=== PATIENT | female | born 1995 | race Hispanic/Latino ===

== ENCOUNTER 2023-08-18 11:23 | Emergency (ER) | payer SELFPAY ==
[2023-08-18 11:25] VITALS: BP 134/87; PULSE 84; RESP 16; TEMP 36.6; O2SAT 100; BMI 31.1
[2023-08-18 12:10] LABS: Bacteria 0 SEEN /hpf (None Seen); Mucous, Urine 0 SEEN /hpf (<or=2+); Red Blood Cells-Urine 0 SEEN /hpf (0-5); White Blood Cells 0 SEEN /hpf (0-5)
[2023-08-18 12:12] LABS: Color, Urine Yellow (Yellow); Glucose, Dipstick Normal (Normal); Ketone-Dipstick Negative (Negative); Leukocyte Esterase-Dipstick Negative /ul (Negative); Nitrite-Dipstick Negative (Negative); Occult Blood-Urine Negative /ul (Negative); Protein-Dipstick Negative (Negative); Specific Gravity, Urine 1.015 (1.002-1.030); Urine Bilirubin Dipstick Negative (Negative); Urine Clarity Cloudy (Clear); Urine Urobilinogen Normal (Normal)
[2023-08-18 12:14] LABS: Internal QC Validated? YES +Cl - CLEAR BKGD; Pregnancy, Urine Negative Negative; Record Kit Lot#,Urine Preg HCG0000718086
[2023-08-18 12:20] LABS: Squamous Epithelial Cells - UA 0-5 SEEN /hpf (5-10)
[2023-08-18 12:21] LABS: Amorphous Sediment 4+
--- NOTE | 2023-08-18 12:29 | CT_ITS ---
STUDY: CTA HEAD AND NECK WITH CONTRAST REASON FOR EXAM: Female, 27 years old. Headache, sudden onset RADIATION DOSAGE (If Supplied By Facility): CTDIvol = ( 25.68 ) mGy, DLP = ( 1526.17 ) mGycm TECHNIQUE: CT angiography was performed with a multi-detector CT scanner. Data acquisition was obtained from the skull base through the vertex following intravenous administration of IV 100mL [id number]-[id number]. MIP images were reconstructed from the axial data set. Post-processing of the angiographic images was performed, with multiplanar reformation and 3D reconstruction. Individualized dose optimization techniques were used for this CT. COMPARISON: No relevant priors. FINDINGS: Normal bilateral petrous carotid arteries. Normal right cavernous carotid artery with a normal supraclinoid bifurcation. Normal left cavernous carotid artery with a normal supraclinoid bifurcation. Normal right A1 segments of the anterior cerebral artery. Normal left A1 segments of the anterior cerebral artery. Normal intact anterior communicating artery (ACOM). Normal bilateral A2 segments of the anterior cerebral arteries. Normal right M1 and M2 segments of the middle cerebral arteries, with a normal M1 bifurcation. Normal left M1 and M2 segments of the middle cerebral arteries, with a normal M1 bifurcation. Normal right posterior communicating artery (PCOM). Normal left posterior communicating artery (PCOM). Normal bilateral vertebral arteries. Normal basilar artery with a normal basilar bifurcation. The visualized bilateral superior cerebellar (SCA) arteries are normal. Normal bilateral P1, P2 and visualized P3 segments of the posterior cerebral arteries. There is no demonstrated aneurysm of the [place]. There is no demonstrated abnormality of the visualized brain. AORTIC ARCH: Normal visualized aortic arch. Normal origins of the brachiocephalic, left common carotid, and left subclavian arteries. RIGHT CAROTID ARTERIES: Normal right common carotid artery (CCA). Normal right common carotid bulb. Normal origin of the right internal carotid (ICA) artery without a hemodynamically significant stenosis. Normal visualized cervical portion of the right internal carotid artery. Normal origin of the right external carotid artery (ECA). LEFT CAROTID ARTERIES: Normal left common carotid artery (CCA). Normal left common carotid bulb. Normal origin of the left internal carotid (ICA) artery without a hemodynamically significant stenosis. Normal visualized cervical portion of the left internal carotid artery. Normal origin of the left external carotid artery (ECA). VERTEBRAL ARTERIES: Normal bilateral vertebral arteries. CT/CTA Head AND Neck W/ Contrast IMPRESSION: Normal CTA Head and neck with contrast. Electronically Signed: Chino Nunez MD at 13:54 EST ,
--- NOTE | 2023-08-18 12:34 | EX.ED.DYSGE1 ---
HPI History of Present Illness Chief Complaint: Nosebleed Informant: patient Limited: language barrier (Formal lab intern used) Narrative Narrative: Patient is a 27-year-old female presenting with multiple complaints. Patient is complaining of headache that started yesterday, epistaxis, concern for elevated blood pressure and concern for . Patient states she has had 4 episodes of epistaxis since yesterday. States it is coming out of both sides of her nose equally. She had clots and she states she had bleeding last for 10 to 15 minutes. She gets it stop with putting water on her forehead and pressure to her nose. She denies any history of nosebleeds and denies any recent cold or congestion. She also notes she did feeling lightheaded and dizzy since yesterday. Patient notes that she developed a headache around 10 AM that the top of her head. She states she is never had a headache this bad before. Headache is been constant. Denies any associated vision changes, numbness or tingling. Patient is concerned she could be having headache and nosebleed because her blood pressure is elevated. In addition patient is concerned for . Her last menstrual period was May 12. She has had negative home test but she does not have a history of irregular cycles. Finally patient is complaining of dysuria. Has been having painful urination lower abdominal discomfort for the past 20 days and 1 month respectively. She denies any blood in her urine. Denies any abnormal vaginal discharge. Patient not take any medication for symptoms. Does not have a doctor. Does not take any medicine on a regular basis. She does note that over the past 5 days she has had intermittent episodes of nausea and vomiting. Patient denies any sick contacts. PFSH PFSH Medical History no medical history Home Medications ondansetron 4 mg disintegrating tablet 4 mg PO Q8H PRN PRN Nausea #10 tabs 08/18/23 [Rx Last Taken Unknown] sodium chloride-aloe vera nasal spray ([place] Saline Gel nasal spray) 1 spray intranasal BID PRN dry nose #22 mL 08/18/23 [Rx Last Taken Unknown] Allergy/AdvReac Type Severity Reaction Status Date / Time No Known Allergies Allergy Verified 08/18/23 11:27 Surgical History no surgical history Social History Smoking Status: Never smoker ROS ROS ED Constitutional Constitutional ED: Denies chills or fever(s) Eyes Eyes: Denies blurry vision or change in vision ENT ENT ED: Reports other Details: Positive epistaxis ; Denies rhinorrhea or sore throat Cardiovascular Cardiovascular: Denies chest pain Respiratory/Chest Respiratory/Chest: Denies cough or dyspnea Gastrointestinal Gastrointestinal: Reports abdominal pain, nausea and vomiting; Denies constipation or diarrhea Genitourinary Genitourinary ED: Reports dysuria and other Details: Abnormal menstrual cycle ; Denies hematuria or urinary frequency Musculoskeletal Musculoskeletal: Denies back pain, myalgias or neck pain Integumentary Denies rash Neurologic Neurologic: Reports headache(s); Denies paresthesias or weakness Psychiatric Psychiatric: Denies anxiety Hematologic/Lymphatic Hematologic/Lymphatic: Denies easy bleeding or easy bruising EXAM Physical Exam Const Vital Signs: 08/18/23 11:25 Temperature 98 F Temperature Source Temporal Pulse Rate 84 Respiratory Rate 16 Blood Pressure 134/87 H Blood Pressure Mean 102 Pulse Ox 100 Oxygen Delivery Method Room Air Positive well nourished and well developed General Appearance ED: well developed and NAD; Negative for pallor HEENT Reports TM's clear and moist mucous membranes HEENT Narrative: Some dried blood noted in the right naris. There appears to be a small area of blood in the right anterior septum with no active bleeding. No redness or tenderness over the sinuses. No blood noted in the oropharynx. Normal oropharynx appreciated. Tympanic Membrane ED: Yes TM's clear Eyes PERRL and EOMs intact bilaterally Neck no lymphadenopathy and supple Neck Narrative: No meningeal signs, no nuchal rigidity, normal range of motion of the neck General: Negative for tenderness Chest Wall inspection of chest normal and palpation of chest normal Resp normal respiratory effort and clear to auscultation bilaterally Cardio regular rate, regular rhythm and no murmurs GI normal to inspection, nondistended, normoactive bowel sounds GI Narrative: Mild tenderness to palpation of the suprapubic region Back/Spine no CVA tenderness Thoracic Spine / Upper Back: Negative for thoracic spinal tenderness or paraspinal muscle tenderness Lumbar Spine / Lower Back: Negative for lumbar spinal tenderness Extremity General Extremety ED: Negative for edema General Extremity: Negative for edema Neuro oriented x3, CN's II-XII intact bilaterally and no sensory deficits noted Neuro Narrative: Normal coordination, normal [id number], no truncal ataxia Sensorium / Orientation: alert Motor Exam: strength 5/5 throughout; Negative for general weakness Psych mental status grossly normal Skin no rashes or lesions noted and no wounds General Skin Exam: Negative for pallor MDM MDM MDM Narrative Medical decision making narrative: Patient is evaluated for multiple complaints including dysuria, headache, epistaxis, nausea, vomiting and abnormal menstrual cycle. Vital signs are normal in the emergency room. She has normal neurologic exam. Given that she reports is the worst headache of her life, sudden onset will obtain a CT of the brain as well as CTA head and neck as she is within about 24 hours of symptoms to rule out subarachnoid hemorrhage or aneurysm. I will also obtain flu and COVID test. Patient not actively bleeding from the epistaxis standpoint. Urinalysis and urine are obtained which are negative for signs of infection or . She does not have elevated ketones or signs of dehydration. Will check some basic labs including CBC and BMP. Patient given Zofran and Tylenol for symptoms in the emergency room. On repeat evaluation using a special education secretary, patient has improvement of her headache. She states is more mild. Workup is largely negative including CBC, BMP, urinalysis and test. CT of the brain and CTA head and neck show no acute abnormality. COVID and flu swab are negative. Patient states her headache is significantly improved is given a Toradol dose before discharge because she still has a mild headache. The etiology of all her symptoms is not clear but at this time but at this time I feel patient can be safely discharged home. Will be given a prescription for Zofran, nasal saline and counseled alternate ibuprofen and Tylenol as needed for her headache. Encouraged follow-up with a primary care doctor and [facility] Encouraged return to emergency room if she has progression or worsening of her symptoms. Discharged home in stable condition. Lab Data Attestation: I reviewed the patient's lab results. Labs: Laboratory Results - last 24 hr 08/18/23 08/18/23 12:05 12:45 WBC 8.4 RBC 4.56 Hgb 12.5 Hct 38.7 MCV 84.9 MCH 27.4 MCHC 32.3 RDW Std Deviation 45.3 H RDW Coeff of Beth 14.8 H Plt Count 254 MPV 10.3 Immature Gran % (Auto) 0.700 Neut % (Auto) 65.5 Lymph % (Auto) 25.7 [place] % (Auto) 6.6 Eos % (Auto) 1.3 Baso % (Auto) 0.2 Absolute Neuts (auto) 5.5 Absolute Lymphs (auto) 2.15 Nucleated RBC % 0 Sodium 139 Potassium 3.7 Chloride 107 Carbon Dioxide 30.0 Anion Gap 2 L BUN 12 Creatinine 0.66 Estim Creat Clear Calc 115.62 Est GFR (MDRD) Af Amer 140 Est GFR (MDRD) Non-Af 115 BUN/Creatinine Ratio 18.2 Glucose 124 H Calcium 8.8 Urine Color Yellow Urine Clarity Cloudy Urine pH 8.0 Ur Specific [place] 1.015 Urine Protein Negative Urine Glucose (UA) Normal Urine Ketones Negative Urine Occult Blood Negative Urine Nitrite Negative Urine Bilirubin Negative Urine Urobilinogen Normal Ur Leukocyte Esterase Negative Urine RBC 0 SEEN Urine WBC 0 SEEN Ur Squamous Epith Cells 0-5 SEEN Amorphous Sediment 4+ Urine Bacteria 0 SEEN Urine Mucus 0 SEEN Urine Test Negative Radiography Diagnostic Testing: Clinical Impression(s) from Imaging Studies Head/Neck CTA 08/18/23 12:29 IMPRESSION: Normal CTA Head and neck with contrast. Electronically Signed: Chino Nunez MD at 13:54 EST Reading Location ID and State: [address] [place] [address] , Service support , Discharge Plan Triage Chief Complaint: Nosebleed ED Provider: Karen Henderson Dx/Rx/DC Orders Clinical Impression: Negative test, Epistaxis, Dysuria, Headache, Abnormal menses, Nausea & vomiting Instructions: Self-Care for Headaches, ED Dysuria, Uncertain Cause (Adult), ED Epistaxis (Adult), ED Vomiting (Adult) Prescriptions: [place] Saline Gel [place],Non-Aerosol 1 spray intranasal BID PRN (Reason: dry nose ) Qty: 22 0RF ondansetron 4 mg tablet,disintegrating 4 mg PO Q8H PRN PRN (Reason: Nausea) Qty: 10 0RF Primary Care Provider: Care Physician,No Primary Referrals: Albaro Lozano DO [Non-Staff] - As soon as possible Rachel Conklin [Non-Staff] - As soon as possible NOT,DEFINED [Non-Staff] - Activity Restrictions/Additional Instructions: Alternate ibuprofen and Tylenol for headache. Your workup was normal. Your test was negative. Print Language: Mongolian Disposition Disposition: Home, Self Care
[2023-08-18] MEDS: Ondansetron 4 MG/2 ML Vial IV (12:44)
[2023-08-18] MEDS: Acetaminophen 325 MG Tablet 650 MG PO (12:44)
[2023-08-18 12:54] LABS: Absolute Lymphocyte Count 2.15 X10^3/uL (0.83-4.51); Absolute Neutrophil Count 5.5 X10^3/uL (2.0-7.7); Basophil# 0.02 X10^3/uL; Basophil% 0.2 % (0-1); Eosinophil# 0.11 X10^3/uL; Eosinophils% 1.3 % (0-5); Hematocrit 38.7 % (37-47); Hemoglobin 12.5 g/dL (12.0-15.0); Lymphocyte # 2.15 X10^3/ul (0.83-4.51); Lymphocyte % 25.7 % (19-41); Mean Corp Hgb Conc 32.3 g/dL (32-36); Mean Corpuscular Hgb 27.4 pg (27.0-32.0); Mean Corpuscular Volume 84.9 fL (81-99); Mean Platelet Vol. 10.3 fl (6.2-12.0); Monocyte# 0.55 X10^3/uL; Monocyte% 6.6 % (0-10); NRBC Flagged by Analyzer 0 % (0-5); Neutrophil # 5.46 X10^3/uL (2.7-7.7); Neutrophil % 65.5 % (47-70); Platelet Count 254 K/mm3 (150-450); RBC Distribution Width CV 14.8 % (11.6-14.6); RBC Distribution Width SD 45.3 fl (35.1-43.9); Red Blood Count 4.56 M/mm3 (4.2-5.4); White Blood Count 8.4 K/mm3 (4.4-11.0)
[2023-08-18 13:05] LABS: Anion Gap 2 (5-15); BUN 12 mg/dL (7-18); BUN/Creat Ratio 18.2 RATIO (10-20); Calcium,Total 8.8 mg/dL (8.5-10.1); Chloride 107 mmol/L (98-107); Creatinine, Serum 0.66 mg/dL (0.55-1.02); EST Glomerular Filtration Rate 115 mL/min (>60); Est Glom Filt Rate - Afr Amer 140 mL/min (>60); Estimated Creatinine Clearance 115.62 ml/min; Glucose 124 mg/dL (74-106); Potassium 3.7 mmol/L (3.5-5.1); Sodium Level 139 mmol/L (136-145)
[2023-08-18] MEDS: Ketorolac 15 MG/ML Vial IV (16:11)
[2023-08-18 16:28] VITALS: BP 109/75; PULSE 74; RESP 16; TEMP 36.6; O2SAT 98
== END 2023-08-18 16:30 | disposition home or self-care (01) ==
PROVIDERS: Emergency Provider Emergency Medicine; Visit Provider Emergency Medicine
DX: R04.0 Epistaxis (principal); R30.0 Dysuria; R51.9 Headache, unspecified; R11.2 Nausea with vomiting, unspecified; N92.6 Irregular menstruation, unspecified; Z32.02 Encounter for pregnancy test, result negative
CPT/HCPCS: 70496; 70498; 80048; 81001; 81025; 85025; 87631; 96374; 96375; 99284; Q9967; A4216; J2405